=== PATIENT | male | born 1995 | race Caucasian/White ===

== ENCOUNTER 2017-03-20 18:56 | Emergency (ER) | payer OTHER, BC ==
[2017-03-20 19:07] VITALS: O2SAT 97
[2017-03-20] MEDS ORDERED: NORCO 5/325 MG PO ONE (19:16)
--- NOTE | 2017-03-20 19:22 | ERPHSYRPT ---
- History of Present Illness Time Seen by Provider: 03/20/17 19:10 Source: patient Exam Limitations: no limitations Patient Subjective Stated Complaint: pt fell last night going up the stairs and is having increased right wrist pain -he has a history of previous right wrist injury in the past -the pain is similar to when he fractured it before -there is sl swelling note and tender to palp -no other injuries Triage Nursing Assessment: pt is awake and alert and able to answer questions Physician History: ABOUT 21 HOURS AGO AT HOME PT WAS WALKING UP STAIRS AND FELL WITH RESULTANT RIGHT WRIST PAIN; DENIES NUMBNESS OF THE RIGHT HAND DIGITS; ADMITS TO PREVIOUS RIGHT WRIST FRACTURES 5 & 7 YEARS AGO BOTH WITHOUT OPERATIVE REPAIR. Allergies/Adverse Reactions: No Known Drug Allergies Allergy (Unverified 03/20/17 19:12) Hx Tetanus, Diphtheria Vaccination/Date Given: Yes Hx Influenza Vaccination/Date Given: No Hx Pneumococcal Vaccination/Date Given: No - Review of Systems Musculoskeletal: Joint Pain (RIGHT WRIST PAIN) - Past Medical History Pertinent Past Medical History: Yes Musculoskeletal History: Other - Past Surgical History Past Surgical History: Yes Musculoskeletal: Orthopedic Surgery Other Surgical History: PATELLA - Social History Smoking Status: Never smoker Exposure to second hand smoke: No Drug Use: none Patient Lives Alone: No - Nursing Vital Signs Nursing Vital Signs: Initial Vital Signs Pulse Rate 92 H 03/20/17 19:06 Respiratory Rate 16 03/20/17 19:06 Blood Pressure 136/88 03/20/17 19:06 O2 Sat by Pulse Oximetry 97 03/20/17 19:06 Pain Scale Pain Intensity 4 - Physical Exam General Appearance: alert Shoulder Exam: normal ROM Elbow/Forearm Exam: normal ROM Wrist Exam: soft tissue tenderness (MILD TENDERNESS OVER THE RADIAL ASPECT OF THE RIGHT WRIST WITH LIMITED ROM.) Hand Exam: normal ROM Neuro/Tendon Exam: normal sensation Mental Status Exam: alert, cooperative Skin Exam: warm, dry SpO2 Interpretation: normal SpO2: 97 Oxygen Delivery: Room Air - Course Nursing assessment & vital signs reviewed: Yes - Radiology Exams Right Wrist X-ray Interpretation: Teleradiologist Report, No Fracture Ordered Tests: Active Orders 24 hr Category Date Time Status Claude Bandage Application -[facility] STAT Care 03/20/17 19:16 Inactive Sling Application STAT Care 03/20/17 19:16 Active Splint STAT Care 03/20/17 19:59 Active WRIST (MIN 3 VIEWS) Stat Exams 03/20/17 19:17 Taken Medication Summary Discontinued Medications Generic Name Dose Route Start Last Admin Trade Name Freq PRN Reason Stop Dose Admin Hydrocodone Bitart/Acetaminophen 2 tab 03/20/17 19:16 03/20/17 19:27 [place] 5/325 Mg PO 03/20/17 19:17 2 tab STAT ONE Administration Hydrocodone Bitart/Acetaminophen Confirm 03/20/17 19:25 [place] 5/325 Mg Administered 03/20/17 19:26 Dose 2 tab .ROUTE .[facility]-MED ONE - Progress Progress Note: 03/20/17 20:01 RIGHT WRIST SPLINT APPLIED BY ER NURSE: GOOD NEUROVASCULAR STATUS AND GOOD ALIGNMENT POST APPLICATION. - Departure Time of Disposition: 20:23 Departure Disposition: Home Clinical Impression: RIGHT WRIST SPRAIN Condition: Stable Critical Care Time: No Referrals: VANESSA TAYLOR MD [Primary Care Provider] - Instructions: Wrist Sprain Additional Instructions: FOLLOW UP WITH PRIVATE DOCTOR TOMORROW. WEAR RIGHT WRIST SPLINT FOR 4 DAYS. WEAR RIGHT ARM SLING FOR COMFORT. Prescriptions: Naproxen [Naprosyn] 500 mg PO Q12H PRN PRN #20 tablet PRN Reason: Pain
[2017-03-20] MEDS ORDERED: NORCO 5/325 MG ONE (19:25)
[2017-03-20 20:00] VITALS: BP 132/76; PULSE 88
--- NOTE | 2017-03-21 08:35 | XRAY ---
Indication: Pain following fall. Comparison: April 01, 2011. 3 views of the right wrist again demonstrates anterior accessory ossicle adjacent to the proximal carpal row on the lateral view. No new/acute bony, articular, or soft tissue abnormalities. Comment: Preliminary interpretation was made by [facility]. No discrepancy.
== END 2017-03-20 20:33 | disposition home or self-care (01) ==
LOC: ED 18:56
DX: S63.501A Unspecified sprain of right wrist, initial encounter (principal); W10.9XXA Fall (on) (from) unspecified stairs and steps, initial encounter
CPT/HCPCS: 73110; 99283; 99284; L3908; A9270-GY